=== PATIENT | female | born 1995 | race Caucasian/White ===

== ENCOUNTER 2017-11-17 02:36 | Emergency (ER) | payer BC ==
[~2017-11-17] VITALS: Ht 154.9 cm; Wt 96.4 kg
[~2017-11-17 02:36] MED LIST: NO HOME MEDS; OMEG500C PO; PREN-139 PO
[2017-11-17] MEDS ORDERED: albuterol 2.5 MG/3 ML nebule NEB ONE (03:05)
[2017-11-17] MEDS ORDERED: albuterol 2.5 MG/3 ML nebule ONE (03:17)
[2017-11-17 03:33] LABS: URINE HCG NEGATIVE (NEG)
[2017-11-17] MEDS ORDERED: ALBU8HFA PO (04:06)
[2017-11-17] MEDS ORDERED: PRED20TA PO (04:06)
[2017-11-17] MEDS ORDERED: AZIT-63 PO (04:06)
[2017-11-17 04:12] VITALS: BP 141/84
== END 2017-11-17 04:14 | disposition home or self-care (01) ==
LOC: ER 02:36
DX: J20.9 Acute bronchitis, unspecified (principal); J45.909 Unspecified asthma, uncomplicated; F17.200 Nicotine dependence, unspecified, uncomplicated; Z79.899 Other long term (current) drug therapy
CPT/HCPCS: 71046; 81025; 93005; 94640; 94760; 99285